=== PATIENT | female | born 1990 | race Caucasian/White ===

== ENCOUNTER → 2018-03-15 | Outpatient (CLI) | payer OTHER ==
[~2018-03-15] MED LIST: AMPH1TAB58 PO; BCPILLS PO
[2018-03-15 16:36] LABS: BASO % 0.5 %; BASO ABS # 0.03 K/uL (0-0.2); EOS % 2.3 %; EOS ABS # 0.15 K/uL (0-0.5); HEMATOCRIT 32.4 % (37-47); HEMOGLOBIN 11.1 g/dL (12.0-16.0); LYMPH ABS # 2.33 K/uL (1.2-3.4); MEAN CELL VOLUME 87.6 fL (80-100); MEAN CORPUSCULAR HGB CONC 34.3 g/dl (32-36); MEAN PLATELET VOLUME 8.8 fL (7.4-10.4); MONO % 9.6 %; MONO ABS # 0.62 K/uL (0.11-0.59); NEUT % 51.6 %; NEUT ABS # 3.35 K/uL (1.4-6.5); PLATELET COUNT 356 K/uL (130-400); RED CELL DISTRIBUTION WIDTH CV 12.7 % (11.5-14.5); RED CELL DISTRIBUTION WIDTH SD 41.1 fL (36.4-46.3); WHITE BLOOD COUNT 6.48 K/uL (4.8-10.8)
== END | disposition home or self-care (01) ==
LOC: C.LAB1850 15:25
PROVIDERS: ATTEND Obstetrics & Gynecology
DX: Z34.01 Encounter for supervision of normal first pregnancy, first trimester (principal)

== ENCOUNTER 2018-10-26 07:46 | Inpatient (IN) ==
[2018-10-26] MEDS ORDERED: LACTATED RINGER'S 1,000 ML IV PRN ×3 (08:18→16:11)
[2018-10-26] MEDS ORDERED: OXYTOCIN 30 UNITS/500 ML BAG IV PRN ×3 (08:18→22:08)
--- NOTE | 2018-10-26 08:25 | History & Physical Report ---
Date of Service October 26, 2018 Assessment & Plan (1) Elective induction of labor planned: Pt is a 28 year old at 40+6 s/p miranda bulb placement 10/25 presenting for induction of labor 09/29 to post dates at 40+6. - FHT reassuring Cat 1 tracing - LR @ 125 - Pitocin 30 units in 500 mls @ 2 mls/hr -> up by 2 - Monitor FHT/toco - Monitor BP - Routine labor care - Anticipate Vaginal , Expectant management History of Present Illness Primary Care Provider: Juanpablo Barbosa, III, [facility] Pt is a 28 year old with lmp of 01/13/2018 and EDC of 10/20/2018 confirmed by 1st trimester ultrasound on 03/15/2018 at 8+5 who presents at 40+6 for induction of labor 09/29 to post dates. A miranda bulb was placed in the evening of 10/25/18 and the pt was instructed to return in the morning. course was significant Rh neg mom and need for rhogam, given on 07/30/18 at 28+2. This morning she reported the miranda bulb fell out ofter 1.5 hours, reports occasional spotting, may have passed her mucus plug, and has reported a few ctx overnight. She denies nausea, vomiting, RUQ pain, swelling, headache, blurred vision, vaginal bleeding, sudden gush of fluid, or decreased movement. Last cer vical exam was 10/25/18 1/80/-2. Pt resting comfortably in bed with dad at the bedside, they have no acute concerns at this time labs First Visit: 7+2 Weight Gain: 35.2 lbs O- antibody neg Last HGB: 10.3 07/30/2019 DM screen: 75 05/07/2018 Rubella Immune HIV neg No hx of abnormal pap, last [address] Gaitan Last U/S 06/04/18: Cephalic, anterior placenta EFW 44%, KEN wnl EGA:40+6 BP Range 100/60-136/82 U/A: skin elisa GBS negative RPR Negative HBsAG Negative GC/ Chlamydia negative OBHX: None GYNHX: menarche @ 13, monthly cycles 28 days, normal amount and duration, no hx abnormal pap, PID, or STDS PMHX: ADHD was taking Adderall stopped on 03/15/18, wisdom teeth extraction Allergies: NKDA FMHX: M- ovarian cyst, PA- epilepsy SHX: Lives with boyfriend and 1 dog Allergies Allergy/AdvReac Type Severity Reaction Status Date / Time No Known Allergies Allergy Unverified 01/22/16 18:04 Home Medications Home Medications Medication Instructions Recorded Confirmed Type ferrous sulfate [Iron (ferrous 325 mg PO DAILY 10/25/18 10/25/18 History sulfate)] vit-iron fum-folic ac 1 tab PO DAILY 10/25/18 10/25/18 History [ Vitamin] Patient History Medical History ADHD H/O wisdom tooth extraction Social History Preferred Language: Prydeinig marital status: Single Feels Safe at Home: Yes Smoking Status: Former smoker Hx Alcohol Use: No Hx Substance Use: No 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 Review of Systems All systems reviewed & are unremarkable except as noted in HPI & below Physical Exam Vital Signs (Past 24 Hours): Last Vital Signs Pulse 82 10/26/18 08:01 BP 118/65 10/26/18 08:01 Constitutional: WD/WN, vitals as above Eyes: normal visual finney by confrontation Respiratory: normal respiratory effort, lungs clear to auscultation Cardiovascular: RRR, no murmur, no edema Extremities: no calf tenderness Skin: no rashes, warm and dry Code Status & VTE Plan Code Status FULL CODE VTE Prophylaxis Plan VTE Prophylaxis will be ordered: Yes Monitoring External Monitor HR 155 Accels present, no decels, ctx preset. Cat one strip Supervising Physician Co-Signing Physician Notes Agree with the above findings, assessment and plan Resident Activity Tracking Resident Involvement: Resident Care Provided Care Provided: Adult Hospital Medicine
[2018-10-26 08:47] LABS: Hematocrit (blood only) 33.1 % (37-47); Hemoglobin 11.2 g/dL (12.0-16.0); Mean Corpuscular Volume 90.4 fL (80-100); Mean Platelet Volume 8.8 fL (7.4-10.4); Platelet Count 272 K/uL (130-400); RDW Coefficient of Variation 13.3 % (11.5-14.5); RDW Standard Deviation 43.6 fL (36.4-46.3); Red Blood Count 3.66 M/uL (4.2-5.4); White Blood Count 8.15 K/uL (4.8-10.8)
[2018-10-26 08:56] LABS: Mean Corpuscular Hgb Conc 33.8 g/dL (32-36)
--- NOTE | 2018-10-26 09:17 | Obstetrical Progress Note ---
Date of Service October 26, 2018 Assessment & Plan (1) Elective induction of labor planned: Will start Oxytocin GBS- Epidural PRN Subjective Patient doing well Physical Exam Vital Signs (Past 24 Hours): Last Vital Signs Temp 36.4 C L 10/26/18 08:09 Pulse 82 10/26/18 08:01 Resp 20 10/26/18 08:09 BP 118/65 10/26/18 08:01 Genitourinary: Manual OB Exam: + cervical dilation 4 cm, + cervical effacement 80% and + station -1 OB Exam Monitor Tracing: + external FHT monitor used and + category I
[2018-10-26] MEDS: LACTATED RINGER'S 1,000 ML IV SCH ×2 (09:39→15:53)
--- NOTE | 2018-10-26 11:47 | Obstetrical Progress Note ---
Date of Service October 26, 2018 Subjective Feeling ctx, does not desire epidural at this time. FHT Cat 1 [place] Q 2-3 min OK for epidural when she desires. Physical Exam Vital Signs (Past 24 Hours): Last Vital Signs Temp 36.4 C L 10/26/18 08:09 Pulse 75 10/26/18 10:50 Resp 20 10/26/18 08:09 BP 104/58 L 10/26/18 10:50
[2018-10-26] MEDS ORDERED: BUPIVACAINE 0.25% 30 ML VIAL ONE (15:20)
[2018-10-26] MEDS ORDERED: ePHEDrine sulfate 50 MG/ML AMP ONE (15:20)
[2018-10-26] MEDS ORDERED: fentaNYL citrate 100 MCG/2 ML VIAL ONE (15:20)
[2018-10-26] MEDS ORDERED: fentaNYL 2MCG/ML ROPIV 1.25MG/ML 100 ML BAG EPI ONE (15:21)
--- NOTE | 2018-10-26 15:32 | Obstetrical Progress Note ---
Date of Service October 26, 2018 Subjective Comfortable. AROM clear fluid. Cat 1, Sophia Q 2 /-1 Physical Exam Vital Signs (Past 24 Hours): Last Vital Signs Temp 36.9 C 10/26/18 14:03 Pulse 66 10/26/18 15:01 Resp 20 10/26/18 14:03 BP 124/80 10/26/18 15:01
[2018-10-26] MEDS ORDERED: ONDANSETRON INJ 2 MG/ML 2 ML VIAL IV PRN (16:11)
[2018-10-26] MEDS ORDERED: DiphenhydrAMINE HCL 50 MG/ML VIAL IV PRN (16:11)
[2018-10-26] MEDS ORDERED: NALOXONE HCL 0.4 MG/1 ML VIAL/CARP IV PRN (16:11)
[2018-10-26] MEDS ORDERED: NALBUPHINE HCL INJ 10 MG/ML AMP IV PRN (16:11)
[2018-10-26] MEDS ORDERED: NALOXONE HCL 1 MG in SODIUM CHLORIDE 0.9% 1000ML 1,000 ML IV PRN (16:11)
[2018-10-26] MEDS ORDERED: ePHEDrine sulfate 50 MG/ML AMP IV PRN (16:11)
[2018-10-26] MEDS ORDERED: fentaNYL 2MCG/ML ROPIV 1.25MG/ML 100 ML BAG EPI PRN (16:11)
--- NOTE | 2018-10-26 16:11 | Anesthesiology Consultation ---
Date of Service October 26, 2018 Assessment & Plan (1) Encounter for pre-operative examination: Chart Review Chart Review: Acceptable Risk for Surgery and Patient NOT seen in Pre Admission Testing Consults Requested none ASA ASA2 Proposed Anesthesia Risk / Benefits Reviewed With: PT / POA / Parent / Guardian, Accepts Plan and Informed Consent Obtained NPO Date Last Intake of Fluids: 10/26/18 Time Last Intake of Fluids: 14:00 Date Last Intake of Solids: 10/26/18 Time Last Intake of Solids: 07:00 History Height/Weight Height: 5 ft 3 in Weight: 69.853 kg Allergies Allergy/AdvReac Type Severity Reaction Status Date / Time No Known Allergies Allergy Verified 10/26/18 08:58 Medications Home Medications Medication Instructions Recorded Confirmed Last Taken ferrous sulfate [Iron (ferrous 325 mg PO DAILY 10/25/18 10/26/18 10/26/18 05:00 sulfate)] vit-iron fum-folic ac 1 tab PO DAILY 10/25/18 10/26/18 10/26/18 05:00 [ Vitamin] Active Medications Generic Name Dose Route Start Last Admin Trade Name Freq PRN Reason Stop Dose Admin Lactated Ringer's 1,000 mls @ 125 mls/hr 10/26/18 08:30 10/26/18 15:10 Lr IV 10/28/18 08:29 999 mls/hr .Q8H ANGEL Infusion Oxytocin 30 units in 500 mls @ 11 mls/hr 10/26/18 08:18 10/26/18 14:00 Pitocin IV 10/28/18 08:17 0.66 units/hr .Q24H PRN 11 mls/hr Labor Induction/Augmentation Titration Protocol 0.66 UNITS/HR Past Medical History Medical History ADHD H/O wisdom tooth extraction Social History Smoking Status: Never smoker tobacco type: cigarettes Hx Alcohol Use: No Alcohol type: wine Hx Substance Use: No substance use type: does not use Physical Exam Vital Signs Last Vital Signs Temp 36.9 C 10/26/18 14:03 Pulse 59 L 10/26/18 16:08 Resp 20 10/26/18 14:03 BP 117/80 10/26/18 16:08 Pulse Ox 100 10/26/18 16:05 Constitutional gravid abdomen ENMT Mouth: no TMJ abnormality Thyromental Distance: > or= 3.5 Finger Breadths Mallampati Class: II Neck normal visual inspection Respiratory normal respiratory effort Cardiovascular Rate/Rhythm: regular rate and regular rhythm Neurologic moves all extremities Psychiatric Orientation: alert Testing Laboratory Results 10/26/18 08:31
--- NOTE | 2018-10-26 19:01 | Procedure Note ---
Vaginal Delivery Summary Date of Service October 26, 2018 Vaginal Delivery Summary Predelivery: 28yo @ 40 02/01, Rh negative status Post: same Procedure: Spontaneous vaginal delivery, repair of 2nd degree perineal laceration EBL: 300ml Complications: none Findings: Viable male , Apgars 8 and 9. Weight pending, please see nursery records Surgeon: Dr. Ugarte Description of delivery: Patient progressed to complete with epidural anesthesia. She then began to push. She spontaneously vaginally delivered a viable male from the cephalic presentation. Head delivered in the left occiput anterior position, no nuchal cord was noted. The anterior shoulder delivered, followed by the posterior shoulder, followed by the body. The baby was placed on mother's abdomen, spontaneous cry was heard. The cord was short, therefore delayed cord clamping was not employed. The cord was doubly clamped and cut immediately. Cord blood was obtained. The placenta was then delivered spontaneously intact with a three-vessel cord. The uterus and vagina were swept of all clots and debris. Pitocin was given, the uterus became firm. The bladder was drained. The cervix vagina and perineum were inspected, and a second degree perineal laceration was noted, this was repaired in standard fashion with 3-0 Vicryl. Excellent hemostasis was observed. Sponge, instrument, needle counts were correct at the conclusion of the delivery. The mother and baby recovered in stable and good condition in the room.
--- NOTE | 2018-10-26 20:24 | Anesthesiology Progress Note ---
Date of Service October 26, 2018 Anesthesia Post Procedure Vital Signs Vital Signs: Temp Pulse Resp BP Pulse Ox 10/26/18 20:21 93 H 83/52 L 10/26/18 20:20 88 85/53 L 10/26/18 20:19 97 H 100 10/26/18 20:14 125 H 99 10/26/18 20:11 142 H 110/64 10/26/18 19:56 171 H 109/58 L 10/26/18 19:41 150 H 18 111/63 10/26/18 19:26 117 H 18 112/79 10/26/18 19:11 100 H 18 110/77 10/26/18 18:57 93 H 18 118/79 10/26/18 18:41 91 H 20 117/63 10/26/18 18:32 111 H 138/65 10/26/18 18:30 116 H 100 10/26/18 18:25 123 H 100 10/26/18 18:24 131 H 90 10/26/18 18:23 22 10/26/18 18:20 123 H 100 10/26/18 18:18 134 H 81 L 10/26/18 18:17 169 H 165/70 H 10/26/18 18:15 129 H 92 10/26/18 18:12 141 H 89 L 10/26/18 18:10 140 H 100 10/26/18 18:06 153 H 90 10/26/18 18:05 129 H 100 10/26/18 18:03 134 H 134/76 10/26/18 18:02 20 10/26/18 18:01 161 H 89 L 10/26/18 18:00 150 H 99 10/26/18 17:55 117 H 100 10/26/18 17:50 140 H 100 10/26/18 17:46 107 H 125/82 10/26/18 17:45 122 H 100 10/26/18 17:44 20 10/26/18 17:40 74 100 10/26/18 17:35 70 98 10/26/18 17:32 60 117/76 10/26/18 17:31 20 10/26/18 17:30 59 L 100 10/26/18 17:25 60 100 10/26/18 17:20 58 L 99 10/26/18 17:17 57 L 114/72 10/26/18 17:16 18 10/26/18 17:15 63 99 10/26/18 17:10 61 100 10/26/18 17:05 57 L 100 10/26/18 17:02 58 L 114/71 10/26/18 17:00 36.8 C 60 20 100 10/26/18 16:55 59 L 100 10/26/18 16:50 59 L 100 10/26/18 16:48 56 L 133/82 10/26/18 16:45 36.9 C 64 20 100 10/26/18 16:40 58 L 100 10/26/18 16:35 58 L 100 10/26/18 16:32 66 132/91 10/26/18 16:30 70 20 99 10/26/18 16:25 59 L 99 10/26/18 16:20 70 99 10/26/18 16:16 60 135/94 10/26/18 16:15 60 20 100 10/26/18 16:14 62 140/90 10/26/18 16:12 62 125/80 10/26/18 16:10 58 L 139/77 99 10/26/18 16:08 59 L 117/80 10/26/18 16:06 57 L 124/79 10/26/18 16:05 59 L 100 10/26/18 16:04 36.8 C 61 139/85 10/26/18 16:02 55 L 130/72 10/26/18 16:00 67 20 128/76 100 10/26/18 15:55 76 100 10/26/18 15:53 68 20 136/80 10/26/18 15:50 68 100 10/26/18 15:45 80 100 10/26/18 15:44 69 20 144/95 H 10/26/18 15:01 66 124/80 10/26/18 15:00 20 10/26/18 14:03 36.9 C 70 20 118/73 10/26/18 12:47 64 116/62 10/26/18 11:58 36.5 C 78 20 110/77 10/26/18 10:50 75 104/58 L 10/26/18 09:44 73 101/67 10/26/18 08:09 36.4 C L 20 10/26/18 08:01 82 118/65 Pain Intensity Lower Abdomen: Pain Intensity: 0 Notes Mental Status: alert / awake / arousable Nausea / Vomiting: adequately controlled Pain: adequately controlled Airway Patency, RR, SpO2: stable & adequate BP & HR: stable & adequate Hydration State: stable & adequate Neuraxial Anesthesia: was administered and sensory block is resolving Anesthetic Complications: no major complications apparent and Pt Satisfied with anesthetic care Notes: Tip removed in tact
[2018-10-26] MEDS ORDERED: METHYLERGONOVINE MALEATE 0.2 MG/ML AMP ONE (20:39)
--- NOTE | 2018-10-26 20:48 | Obstetrical Progress Note ---
Date of Service October 26, 2018 Subjective Called to patient room for low BP, elevated pulse. Patient's family just left room, she states she thinks she was just stressed out while they were here. Small trickle of blood from vagina, not large amount. Pelvic exam reveals large amount of clots, this was expressed manually. Small piece of placenta extracted from uterine fundus. Bleeding appears to have stopped. 1000mcg cytotec given rectally, 0.2mg methergine given to help prevent uterine atony. Labs/coags ordered STAT. IV fluid bolus given. Physical Exam Vital Signs (Past 24 Hours): Last Vital Signs Temp 36.8 C 10/26/18 17:00 Pulse 98 H 10/26/18 20:44 Resp 18 10/26/18 19:41 BP 112/64 10/26/18 20:43 Pulse Ox 100 10/26/18 20:44
[2018-10-26] MEDS ORDERED: miSOPROStol 200 MCG TAB PR ONE (20:50)
[2018-10-26] MEDS ORDERED: METHYLERGONOVINE MALEATE 0.2 MG/ML AMP IM STA (20:51)
[2018-10-26] MEDS ORDERED: miSOPROStol 200 MCG TAB ONE (20:51)
[2018-10-26 21:05] LABS: Hematocrit (blood only) 28.8 % (37-47); Hemoglobin 9.8 g/dL (12.0-16.0); Mean Corpuscular Volume 90.3 fL (80-100); Mean Platelet Volume 8.6 fL (7.4-10.4); Platelet Count 226 K/uL (130-400); RDW Coefficient of Variation 13.2 % (11.5-14.5); RDW Standard Deviation 43.3 fL (36.4-46.3); Red Blood Count 3.19 M/uL (4.2-5.4); White Blood Count 13.71 K/uL (4.8-10.8)
[2018-10-26] MEDS: IBUPROFEN 600 MG TAB PO PRN (21:06)
--- NOTE | 2018-10-26 21:16 | Obstetrical Progress Note ---
Date of Service October 26, 2018 Subjective Recheck of uterus, fundus firm and below umbilicus. Small clots expressed on manual exam. BP and pulse improved. Patient feeling ok. Discussed hemorrhage, provided reassurance. Hemoglobin 9.8 (down from 11.2). Remainder of labs pending. Physical Exam Vital Signs (Past 24 Hours): Last Vital Signs Temp 36.8 C 10/26/18 17:00 Pulse 92 H 10/26/18 21:09 Resp 18 10/26/18 19:41 BP 119/90 10/26/18 21:05 Pulse Ox 100 10/26/18 21:09
[2018-10-26 21:21] LABS: Alanine Aminotransferase 24 U/L (12-78); Albumin Level 2.1 gm/dl (3.4-5.0); Aspartate Aminotransferase 23 U/L (15-37); BUN Creatinine Ratio 13.9 (10-20); Blood Urea Nitrogen 7 mg/dl (7-18); Carbon Dioxide 20 mmol/L (21-32); Chloride 107 mmol/L (98-107); Creatinine Clr Calc Pharmacy 167.1 ml/min; Est GFR (African American) > 150.0; Est GFR (Non-African American) 134.4; Glucose 85 mg/dl (70-99); Potassium 3.5 mmol/L (3.5-5.1); Sodium 136 mmol/L (136-145)
[2018-10-26 21:24] LABS: Albumin Globulin Ratio 0.6 (0.9-2); Alkaline Phosphatase 126 U/L (45-117); Bilirubin,Total 0.3 mg/dl (0.2-1); Globulin 3.3 gm/dl (2.5-4.0); Total Protein 5.4 gm/dl (6.4-8.2)
[2018-10-26 21:33] LABS: Basophils # (auto) 0.01 K/uL (0-0.2); Basophils % (auto) 0.1 %; Eosinophils # (auto) 0.01 K/uL (0-0.5); Eosinophils % (auto) 0.1 %; Immature Granulocytes # (auto) 0.02 K/uL (0.00-0.02); Immature Granulocytes % (auto) 0.1 %; Lymphocytes # (auto) 1.36 K/uL (1.2-3.4); Lymphocytes % (auto) 9.9 %; Monocytes # (auto) 1.03 K/uL (0.11-0.59); Monocytes % (auto) 7.5 %; Neutrophils # (auto) 11.28 K/uL (1.4-6.5); Neutrophils % (auto) 82.3 %
[2018-10-26 21:49] LABS: Fibrinogen 395 mg/dl (184-400); Partial Thromboplastin Ratio 0.8; Partial Thromboplastin Time 22.8 Seconds (21.0-31.0); Prothrombin Time 9.8 Seconds (9.0-12.0)
[2018-10-26] MEDS ORDERED: BENZOCAINE 20% AER SPR 82.5 GM CAN EXT PRN (22:08)
[2018-10-26] MEDS ORDERED: OXYCODONE/ACETAMINOPHEN 5mg/325mg TAB PO PRN (22:08)
[2018-10-26] MEDS ORDERED: DIPHTHERIA/TETANUS/PERTUSSIS 0.5 ML SYR/VIAL IM ONE (22:08)
[2018-10-26] MEDS ORDERED: SUPERCREAM 0.870% 15 GM JAR EXT PRN (22:08)
[2018-10-26] MEDS ORDERED: ACETAMINOPHEN 325 MG TAB PO PRN (22:08)
[2018-10-26] MEDS ORDERED: BISACODYL 10 MG SUPP PR PRN (22:08)
[2018-10-26] MEDS ORDERED: HYDROCORTISONE ACETATE 25 MG SUPP PR PRN (22:08)
[2018-10-26] MEDS: DOCUSATE SODIUM 100 MG CAP PO SCH (23:19)
[2018-10-27] MEDS: IBUPROFEN 600 MG TAB PO PRN ×4 (01:28→23:08)
[2018-10-27 06:44] LABS: Hematocrit (blood only) 27.5 % (37-47); Hemoglobin 9.3 g/dL (12.0-16.0)
--- NOTE | 2018-10-27 07:12 | Obstetrical Progress Note ---
Date of Service October 27, 2018 Assessment & Plan (1) Status post vaginal delivery: Patient is a 28 year old PPD 1 presented for IOL 2/2 post dates currently s/p -Vital signs WNL bp 107/69 T36.7, -Hemoglobin is 9.8 down from 11.2 on admission. no si/sx of anemia. -Pt is doing clinically well -Continue to encourage ambulation as tolerated, Monitor and control pain with motrin prn, Continue diet as tolerated. -Continue to support and encourage breast feeding -Routine care Supervising Physician Co-Signing Physician Notes I have seen/examined patient. I have read above note performed by resident and I agree with above. Any changes/additions are as follows: PPD#1 doing well. No further bleeding after last night's hemorrhage and manual removal of retained placenta. Feeling well. Anticipate discharge home tomorrow. Taty Ugarte DO [facility] Subjective Pt sleeping in bed with FOB sleeping in bed next to her. She is doing well this am and in good spirits. Overnight she had continued vaginal bleeding and hypotension 2/2 to retained placenta, removed by Dr. Ugarte (see previous note). Plan is to breast feed. Patient is tolerating her diet, ambulating, passing gas and voiding, no bm. Reports moderate lochia. Denies H/A, chest pain, palpitations and uti syx. No concerns at this time pain is well controlled Physical Exam Vital Signs (Past 24 Hours): Last Vital Signs Temp 36.6 C 10/27/18 04:35 Pulse 80 10/27/18 04:35 Resp 18 10/27/18 04:35 BP 107/70 10/27/18 04:35 Pulse Ox 99 10/26/18 22:54 Constitutional: WD/WN, vitals as above Eyes: normal visual finney by confrontation Respiratory: normal respiratory effort, lungs clear to auscultation Cardiovascular: RRR, no murmur, no edema Extremities: no calf tenderness Gastrointestinal (Abdomen): normal bowel sounds, soft, nontender, no hepatosplenomegaly (Uterus firm 1 finger below umbilicus) Skin: no rashes, warm and dry Results & Data Laboratory Results 10/27/18 10/27/18 10/26/18 Range/Units 06:28 06:28 20:51 WBC (4.8-10.8) K/uL RBC (4.2-5.4) M/uL Hgb 9.3 L (12.0-16.0) g/dL Hct 27.5 L (37-47) % MCV (80-100) fL MCH (25-34) pg MCHC (32-36) g/dL RDW Std Deviation (36.4-46.3) fL RDW Coeff of Siobhan (11.5-14.5) % Plt Count (130-400) K/uL MPV (7.4-10.4) fL Immature Gran % (Auto) % Neut % (Auto) % Lymph % (Auto) % [place] % (Auto) % Eos % (Auto) % Baso % (Auto) % Immature Gran # (Auto) (0.00-0.02) K/uL Neut # (Auto) (1.4-6.5) K/uL Lymph # (Auto) (1.2-3.4) K/uL [place] # (Auto) (0.11-0.59) K/uL Eos # (Auto) (0-0.5) K/uL Baso # (Auto) (0-0.2) K/uL PT (9.0-12.0) Seconds INR (0.9-1.1) APTT (21.0-31.0) Seconds PTT Ratio Fibrinogen (184-400) mg/dl Fibrin Degrad Products 10-40 H (<10) mcg/ml Sodium (136-145) mmol/L Potassium (3.5-5.1) mmol/L Chloride (98-107) mmol/L Carbon Dioxide (21-32) mmol/L Anion Gap (3-11) BUN (7-18) mg/dl Creatinine (0.6-1.2) mg/dl Est Cr Clr Drug Dosing ml/min Est GFR ( Amer) Est GFR (Non-Af Amer) BUN/Creatinine Ratio (10-20) Glucose (70-99) mg/dl Calcium (8.5-10.1) mg/dl Total Bilirubin (0.2-1) mg/dl AST (15-37) U/L ALT (12-78) U/L Alkaline Phosphatase (45-117) U/L Lactate Dehydrogenase (84-246) U/L Total Protein (6.4-8.2) gm/dl Albumin (3.4-5.0) gm/dl Globulin (2.5-4.0) gm/dl Albumin/Globulin Ratio (0.9-2) Blood Type Pending Antibody Screen Pending Screen Pending 10/26/18 10/26/18 10/26/18 Range/Units 20:51 20:51 20:51 WBC (4.8-10.8) K/uL RBC (4.2-5.4) M/uL Hgb (12.0-16.0) g/dL Hct (37-47) % MCV (80-100) fL MCH (25-34) pg MCHC (32-36) g/dL RDW Std Deviation (36.4-46.3) fL RDW Coeff of Siobhan (11.5-14.5) % Plt Count (130-400) K/uL MPV (7.4-10.4) fL Immature Gran % (Auto) % Neut % (Auto) % Lymph % (Auto) % [place] % (Auto) % Eos % (Auto) % Baso % (Auto) % Immature Gran # (Auto) (0.00-0.02) K/uL Neut # (Auto) (1.4-6.5) K/uL Lymph # (Auto) (1.2-3.4) K/uL [place] # (Auto) (0.11-0.59) K/uL Eos # (Auto) (0-0.5) K/uL Baso # (Auto) (0-0.2) K/uL PT 9.8 (9.0-12.0) Seconds INR 1.0 (0.9-1.1) APTT 22.8 (21.0-31.0) Seconds PTT Ratio 0.8 Fibrinogen 395 (184-400) mg/dl Fibrin Degrad Products (<10) mcg/ml Sodium 136 (136-145) mmol/L Potassium 3.5 (3.5-5.1) mmol/L Chloride 107 (98-107) mmol/L Carbon Dioxide 20 L (21-32) mmol/L Anion Gap 9.0 (3-11) BUN 7 (7-18) mg/dl Creatinine 0.47 L (0.6-1.2) mg/dl Est Cr Clr Drug Dosing 167.1 ml/min Est GFR ( Amer) > 150.0 Est GFR (Non-Af Amer) 134.4 BUN/Creatinine Ratio 13.9 (10-20) Glucose 85 (70-99) mg/dl Calcium 8.0 L (8.5-10.1) mg/dl Total Bilirubin 0.3 (0.2-1) mg/dl AST 23 (15-37) U/L ALT 24 (12-78) U/L Alkaline Phosphatase 126 H (45-117) U/L Lactate Dehydrogenase 173 (84-246) U/L Total Protein 5.4 L (6.4-8.2) gm/dl Albumin 2.1 L (3.4-5.0) gm/dl Globulin 3.3 (2.5-4.0) gm/dl Albumin/Globulin Ratio 0.6 L (0.9-2) Blood Type Antibody Screen Screen 10/26/18 10/26/18 Range/Units 20:51 08:31 WBC 13.71 H 8.15 (4.8-10.8) K/uL RBC 3.19 L 3.66 L (4.2-5.4) M/uL Hgb 9.8 L 11.2 L (12.0-16.0) g/dL Hct 28.8 L 33.1 L (37-47) % MCV 90.3 90.4 (80-100) fL MCH 30.7 30.6 (25-34) pg MCHC 34.0 33.8 (32-36) g/dL RDW Std Deviation 43.3 43.6 (36.4-46.3) fL RDW Coeff of Siobhan 13.2 13.3 (11.5-14.5) % Plt Count 226 272 (130-400) K/uL MPV 8.6 8.8 (7.4-10.4) fL Immature Gran % (Auto) 0.1 % Neut % (Auto) 82.3 % Lymph % (Auto) 9.9 % [place] % (Auto) 7.5 % Eos % (Auto) 0.1 % Baso % (Auto) 0.1 % Immature Gran # (Auto) 0.02 (0.00-0.02) K/uL Neut # (Auto) 11.28 H (1.4-6.5) K/uL Lymph # (Auto) 1.36 (1.2-3.4) K/uL [place] # (Auto) 1.03 H (0.11-0.59) K/uL Eos # (Auto) 0.01 (0-0.5) K/uL Baso # (Auto) 0.01 (0-0.2) K/uL PT (9.0-12.0) Seconds INR (0.9-1.1) APTT (21.0-31.0) Seconds PTT Ratio Fibrinogen (184-400) mg/dl Fibrin Degrad Products (<10) mcg/ml Sodium (136-145) mmol/L Potassium (3.5-5.1) mmol/L Chloride (98-107) mmol/L Carbon Dioxide (21-32) mmol/L Anion Gap (3-11) BUN (7-18) mg/dl Creatinine (0.6-1.2) mg/dl Est Cr Clr Drug Dosing ml/min Est GFR ( Amer) Est GFR (Non-Af Amer) BUN/Creatinine Ratio (10-20) Glucose (70-99) mg/dl Calcium (8.5-10.1) mg/dl Total Bilirubin (0.2-1) mg/dl AST (15-37) U/L ALT (12-78) U/L Alkaline Phosphatase (45-117) U/L Lactate Dehydrogenase (84-246) U/L Total Protein (6.4-8.2) gm/dl Albumin (3.4-5.0) gm/dl Globulin (2.5-4.0) gm/dl Albumin/Globulin Ratio (0.9-2) Blood Type Antibody Screen Screen Medications Administered Current Inpatient Medications Acetaminophen (Tylenol) 650 mg PO Q6H PRN PRN Reason: Pain/GRIFFIN/Fever Stop: 11/25/18 22:07 Benzocaine (Dermoplast Pain Relieving [place]) 1 appln EXT PRN PRN PRN Reason: Perineal Discomfort Stop: 11/25/18 22:07 Last Admin: 10/26/18 23:23 Dose: 1 appln Documented by: Bisacodyl (Dulcolax) 10 mg RI DAILY PRN PRN Reason: No BM on 2nd post- day Stop: 11/25/18 22:07 Bisacodyl (Dulcolax) 5 mg PO 1999 [facility] Stop: 10/27/18 20:01 Cocaine HCl (Supercream 0.870%) 1 gm EXT BID PRN PRN Reason: Hemorrhoidal Inflammation Stop: 11/09/18 22:07 Docusate Sodium (Colace) 100 mg PO BID [facility] Stop: 11/25/18 22:07 Last Admin: 10/26/18 23:19 Dose: Not Given Documented by: Hydrocortisone (Anusol Hc) 25 mg RI BID PRN PRN Reason: Hemorrhoidal Inflammation Stop: 11/25/18 22:07 Oxytocin (Pitocin) 30 units in 500 mls @ 333.333 mls/hr IV .Q1H30M PRN; Protocol PRN Reason: BLEEDING CONTROL Stop: 11/25/18 22:07 Ibuprofen (Motrin) 600 mg PO Q4H PRN PRN Reason: Pain/GRIFFIN/Cramping/Fever Stop: 11/25/18 18:53 Last Admin: 10/27/18 01:28 Dose: 600 mg Documented by: Oxycodone/Acetaminophen (Percocet 5mg/325mg) 1 tab PO Q4H PRN PRN Reason: Pain not relieved by... Stop: 11/09/18 22:07 Prenat Multivit/[place]/Iron/Folic Ac ( Vitamin) 1 tab PO QAM [facility] Stop: 11/26/18 08:59 Resident Activity Tracking Resident Involvement: Resident Care Provided Care Provided: Adult Hospital Medicine
[2018-10-27] MEDS: DOCUSATE SODIUM 100 MG CAP PO SCH ×2 (09:41→20:14)
[2018-10-27] MEDS: PRENATAL VITAMIN 1 TAB PO SCH (09:41)
[2018-10-27] MEDS ORDERED: BISACODYL 5 MG TABEC PO SCH (20:00)
--- NOTE | 2018-10-28 05:42 | Obstetrical Progress Note ---
Date of Service October 28, 2018 Assessment & Plan (1) Status post vaginal delivery: Patient PPD2 Stable for discharge Subjective Patient doing well. Meeting PP goals Physical Exam Vital Signs (Past 24 Hours): Last Vital Signs Temp 36.5 C 10/27/18 23:20 Pulse 79 10/27/18 23:20 Resp 18 10/27/18 23:20 BP 107/64 10/27/18 23:20 Pulse Ox 99 10/27/18 20:05 Genitourinary: OB Exam Abdomen: + fundal height Fundus: + firm and + relation to umbilicus (Below); not tender and not boggy
[2018-10-28] MEDS: PRENATAL VITAMIN 1 TAB PO SCH (07:59)
[2018-10-28] MEDS: DOCUSATE SODIUM 100 MG CAP PO SCH (07:59)
== END 2018-10-28 13:28 | disposition home or self-care (01) | DRG 806 ==
LOC: 4S1 07:46 → 4S2 23:31

== ENCOUNTER 2022-01-03 07:35 | Inpatient (IN) ==
[2022-01-03] MEDS ORDERED: OXYTOCIN 30 UNITS/500 ML BAG IV PRN ×3 (08:26→13:10)
--- NOTE | 2022-01-03 08:43 | Labor Progress Brief Note ---
Date of Service January 03, 2022 Subjective 31yo @ 40w2d for planned IOL, arrives with no ctx no lof no VB, + FM. Wants to make certain she gets her epidural as she got very painful very quickly after ROM with her last labor. Assessment & Plan (1) Encounter for induction of labor: Plan: Patient planned for IOL today. Per patient wishes, OK to get IV and Epidural placed before pitocin starts as she is fearful of missing the chance to get pain relief given her prior history and current advanced dilation. Admission and Anticipated Discharge Date Admission Date: January 03, 2022 Physical Exam Genitourinary: /-1 FHT Cat 1 Rare ctx barely appreciated by patient Results & Data ([facility]) Vital Signs (Past 12 Hours) Vital Signs Pulse BP 01/03/22 07:43 86 127/77 Coding Level of Care Code None Diagnoses Encounter for induction of labor Z34.90
[2022-01-03] MEDS: LACTATED RINGER'S 1,000 ML IV PRN ×2 (08:45→10:21)
[2022-01-03] MEDS ORDERED: PATIENT'S HEIGHT AND/OR WEIGHT NEEDED SCH (08:45)
[2022-01-03] MEDS ORDERED: fentaNYL 2MCG/ML ROPIVACAINE 1.25MG/ML 100 ML BAG EPI ONE (08:58)
[2022-01-03] MEDS ORDERED: SODIUM CHLORIDE 0.9% INJ 10 ML VIAL ONE (08:58)
[2022-01-03] MEDS ORDERED: fentaNYL citrate 100 MCG/2 ML VIAL ONE (08:58)
[2022-01-03] MEDS ORDERED: ePHEDrine sulfate 50 MG/ML AMP ONE (08:58)
[2022-01-03] MEDS ORDERED: BUPIVACAINE 0.25% 30 ML VIAL ONE (08:58)
[2022-01-03 09:06] LABS: Hematocrit (blood only) 34.2 % (37-47); Hemoglobin 11.5 g/dL (12.0-16.0); Mean Corpuscular Hemoglobin 30.6 pg (25-34); Mean Corpuscular Hgb Conc 33.6 g/dL (32-36); Mean Platelet Volume 8.4 fL (7.4-10.4); Platelet Count 347 K/uL (130-400); RDW Coefficient of Variation 13.6 % (11.5-14.5); RDW Standard Deviation 45.2 fL (36.4-46.3); Red Blood Count 3.76 M/uL (4.2-5.4); White Blood Count 8.43 K/uL (4.8-10.8)
[2022-01-03] MEDS ORDERED: NALBUPHINE HCL INJ 10 MG/ML AMP IV PRN (09:10)
[2022-01-03] MEDS ORDERED: NALOXONE HCL 1 MG in SODIUM CHLORIDE 0.9% 1000ML 1,000 ML IV PRN (09:10)
[2022-01-03] MEDS ORDERED: ePHEDrine sulfate 50 MG/ML AMP IV PRN (09:10)
[2022-01-03] MEDS ORDERED: NALOXONE HCL 0.4 MG/1 ML VIAL/CARP IV PRN (09:10)
[2022-01-03] MEDS ORDERED: fentaNYL 2MCG/ML ROPIVACAINE 1.25MG/ML 100 ML BAG EPI PRN (09:10)
[2022-01-03] MEDS ORDERED: diphenhydrAMINE 50 MG/ML VIAL IV PRN (09:10)
[2022-01-03] MEDS ORDERED: ONDANSETRON INJ 2 MG/ML 2 ML VIAL IV PRN (09:10)
--- NOTE | 2022-01-03 09:10 | Anesthesiology Consultation ---
Date of Service January 03, 2022 Assessment & Plan ASA ASA2 Proposed Anesthesia Anesthesia Type: Labor Epidural Risk / Benefits Reviewed With: PT / POA / Parent / Guardian, Accepts Plan and Informed Consent Obtained History Allergies Allergy/AdvReac Type Severity Reaction Status Date / Time No Known Allergies Allergy Verified 12/31/21 12:12 Medications Home Medications Medication Instructions Recorded Confirmed Last Taken prenat.vits,mitzy,nax-[id number]-[id number] 1 tab PO DAILY 05/21/21 01/03/22 01/03/22 06:00 ferrous sulfate 325 mg (65 mg 325 mg PO DAILY 10/26/21 01/03/22 12/31/21 08:00 iron) tablet omega 3,6,9 combination no.7 92 mg 92 mg PO DAILY 01/03/22 01/03/22 01/03/22 06:00 (43 mg-22 [id number]) chew tablet ([facility]) Active Medications Generic Name Dose Route Start Last Admin Trade Name Freq PRN Reason Stop Dose Admin Lactated Ringer's 1,000 mls @ 125 mls/hr 01/03/22 08:26 01/03/22 08:49 Lr IV 01/05/22 08:25 999 mls/hr .Q8H PRN Infusion L&D Protocol Protocol Past Medical History Medical History (Updated 01/03/22 @ 08:42 by Jackelin Benjamin MD) ADHD History of chicken pox Exercise / Class Metabolic Activity II 4-5 Yardwork/Stairs/Walk up hill Past Family History Family History (Updated 01/03/22 @ 08:10 by Yesi Hodge RN) Father Heart disease Skin cancer Other Epilepsy Ovarian cyst Denies family history of Ovarian cancer Breast cancer Colorectal cancer Uterine cancer Past Surgical History Surgical History H/O wisdom tooth extraction Past Anesthesia History No Hx of Anesthesia Complications and No Family Hx of Anesthesia Complications History of PONV No Hx of PONV and No Hx of Motion Sickness Social History Smoking Status: Former smoker tobacco type: cigarettes Hx Alcohol Use: No Alcohol type: wine Hx Substance Use: No substance use type: does not use Review of Systems denies fever/cough/ colds/ chest pain/ SOB/ BELL denies BELL Physical Exam Vital Signs Last Vital Signs Temp 36.7 C 01/03/22 07:43 Pulse 86 01/03/22 07:43 Resp 20 01/03/22 07:43 BP 127/77 01/03/22 07:43 ENMT Mouth: no TMJ abnormality and no dentition abnormality Thyromental Distance: > or= 3.5 Finger Breadths Mallampati Class: II Neck neck extension not limited Respiratory normal respiratory effort; no respiratory distress Auscultation: lungs clear to auscultation bilaterally Cardiovascular Rate/Rhythm: regular rate and regular rhythm Neurologic moves all extremities Psychiatric Orientation: alert and oriented x 3 Testing Laboratory Results 01/03/22 08:39
--- NOTE | 2022-01-03 09:13 | History & Physical Report ---
Date of Service January 03, 2022 Assessment & Plan (1) Encounter for supervision of normal in multigravida: Plan: IOL. Pitocin. OK for epidural when she desires. Admission and Anticipated Discharge Date Admission Date: January 03, 2022 History of Present Illness Chief Complaint: IOL Primary Care Provider: Juanpablo Barbosa III, MARISELA 31yo @ 40 10/04, here for IOL. with: and Delivery Plans Post-Dates Induction 01/03/22 Need for Rhogam d/t Rh negative mother Rhogam given 10/12/21 SB Flu vaccine received 05/27/21 OC covid J and J, moderna booster in Jun. Tdap given 10/12/21 anterior placenta with posterior accessory lobe--not connected to main placenta, no over cervix. take care with placenta that delivery intact and includes lobe. Allergies Allergy/AdvReac Type Severity Reaction Status Date / Time No Known Allergies Allergy Verified 12/31/21 12:12 Home Medications Medication Instructions Recorded Confirmed Type prenat.vits,mitzy,ish-jxbl-pwtvj 1 tab PO DAILY 05/21/21 01/03/22 History ferrous sulfate 325 mg (65 mg 325 mg PO DAILY 10/26/21 01/03/22 History iron) tablet omega 3,6,9 combination no.7 92 mg 92 mg PO DAILY 01/03/22 01/03/22 History (43 mg-22 [id number]) chew tablet ([facility]) Patient History Medical History (Updated 01/03/22 @ 08:42 by Jackelin Benjamin MD) ADHD History of chicken pox Surgical History H/O wisdom tooth extraction Family History (Updated 01/03/22 @ 08:10 by Yesi Hodge RN) Father Heart disease Skin cancer Other Epilepsy Ovarian cyst Denies family history of Ovarian cancer Breast cancer Colorectal cancer Uterine cancer Social History (Updated 01/03/22 @ 08:15 by Yesi Hodge, LOLLY) Smoking Status: Former smoker Hx Alcohol Use: No Hx Substance Use: No Preferred Language: Angolan Communication Ability: Effective Visual Impairment: No Limitations Hearing Ability: Normal Dog Hair Clipper Required: No Beliefs That Will Affect Care: None marital status: Single marital status details: Alex Stone (43) [phone] Current Living Situation: Family and Significant Other Current Living Situation Comment: lives with fob, son, dog current occupational status: employed current occupation: teacher-[employer] Other Information That Helps Us Care for You: No Feels Safe at Home: Yes Diet Comment: No pork Gender Identity: Female Assistive Devices: None Review of Systems All systems reviewed & are unremarkable except as noted in HPI & below Physical Exam Constitutional: WD/WN, vitals as above Respiratory: normal respiratory effort, lungs clear to auscultation no respiratory distress Cardiovascular: Rate/Rhythm: regular rate and regular rhythm Gastrointestinal (Abdomen): Inspection/Auscultation: abdomen normal to inspection Percussion/Palpation: abdomen soft; abdomen nontender Gravid. No s/s chorio or abruption. Skin: no rashes, warm and dry Psychiatric: A+Ox3, euthymic affect Results & Data ([facility]) Vital Signs (Past 12 Hours) Vital Signs Temp Pulse Resp BP 01/03/22 07:43 36.7 C 86 20 127/77 Monitoring External Monitor FHT Cat 1 [place] rare Coding Level of Care Code None Diagnoses Encounter for supervision of normal in multigravida Z34.80
--- NOTE | 2022-01-03 11:24 | Labor Progress Brief Note ---
Date of Service January 03, 2022 Subjective Comfortable with epidural. FHT Cat 1 [place] Q 2-3 SVE 6-7/100/0 AROM clear fluid. Pitocin @ 3 Continue labor. Assessment & Plan Admission and Anticipated Discharge Date Admission Date: January 03, 2022 Results & Data ([facility]) Vital Signs (Past 12 Hours) Vital Signs Temp Pulse Resp BP Pulse Ox 01/03/22 11:22 76 01/03/22 11:17 86 100 01/03/22 11:12 89 99 01/03/22 11:11 63 106/64 01/03/22 11:07 60 98 01/03/22 11:02 60 98 01/03/22 10:57 222 H 63 L 01/03/22 10:55 66 104/67 01/03/22 10:48 78 98 01/03/22 10:43 65 96 01/03/22 10:40 75 102/60 01/03/22 10:38 75 100 01/03/22 10:33 74 100 01/03/22 10:28 74 99 01/03/22 10:25 77 96/57 L 01/03/22 10:23 81 98 01/03/22 10:18 76 100 01/03/22 10:13 70 98 01/03/22 10:10 75 96/54 L 01/03/22 10:08 75 99/54 L 100 01/03/22 10:06 94 H 111/66 01/03/22 10:04 75 108/61 01/03/22 10:03 78 100 01/03/22 10:02 86 116/67 01/03/22 10:00 72 16 91/50 L 01/03/22 09:58 76 95/61 L 100 01/03/22 09:56 103 H 105/67 01/03/22 09:54 90 114/66 01/03/22 09:53 90 100 01/03/22 09:52 96 H 118/68 01/03/22 09:50 99 H 20 113/65 01/03/22 09:48 97 H 113/65 100 01/03/22 09:46 106 H 113/68 01/03/22 09:44 103 H 108/66 01/03/22 09:43 102 H 100 01/03/22 09:42 106 H 112/66 01/03/22 09:40 82 20 105/57 L 01/03/22 09:38 96 H 18 114/76 100 01/03/22 09:36 78 113/71 01/03/22 09:33 103 H 99 01/03/22 09:28 87 100 01/03/22 09:24 90 20 135/75 01/03/22 09:23 97 H 100 01/03/22 07:43 36.7 C 86 20 127/77 Coding Level of Care Code None
--- NOTE | 2022-01-03 12:56 | Delivery Summary ---
Vaginal Delivery Summary Date of Service January 03, 2022 Vaginal Delivery Summary and 2nd Degree LAC Vaginal Delivery Summary: Pre-delivery diagnoses: 31yo @ 40 2/7, IOL Post-delivery diagnoses: same Procedure: spontaneous vaginal delivery, repair of 2nd degree perineal laceration Surgeon: Taty Ugarte DO Complications: none Findings: Viable female . Apgars: 9/9. Weight pending, please see nursery records Estimated blood loss: 300ml Description of delivery: The patient progressed to complete with epidural anesthesia. She then began to push. She spontaneously vaginally delivered a viable from the cephalic presentation. The head delivered in ANNETTE position. The anterior shoulder delivered, followed by the posterior shoulder, followed by the body. No nuchal cord. The baby was placed on mother's abdomen and a spontaneous cry was heard. Delayed cord clamping was employed, and the cord was doubly clamped and cut. Cord blood was obtained. The placenta was delivered spontaneously intact with a 3-vessel cord. Uterine sweep revealed no remaining placental tissue. The uterus and vagina were swept of clots and debris. IV pitocin was given. The uterus became firm. The cervix, vagina, and perineum were inspected. No evidence of vaginal cyst previously seen in office. 2nd degree perineal laceration reapproximated with 3-0 vicryl. Excellent hemostasis was observed. The mother and baby are recovering in stable and good condition in the room. Sponge, needle and instrument counts were correct x 2. Taty Ugarte DO [facility] Vaginal Delivery Charge Vaginal Delivery Codes: 24715 global code for the antepartum, delivery, and post- Delivery Type Details: and 2nd Degree LAC
[2022-01-03] MEDS ORDERED: BENZOCAINE 20% AER SPR 82.5 GM CAN EXT PRN (13:10)
[2022-01-03] MEDS ORDERED: DIPHTHERIA/TETANUS/PERTUSSIS 0.5 ML SYR/VIAL IM ONE (13:10)
[2022-01-03] MEDS ORDERED: oxyCODONE/ACETAMINOPHEN 5mg/325mg TAB PO PRN (13:10)
[2022-01-03] MEDS ORDERED: bisacodyL 10 MG SUPP PR PRN (13:10)
[2022-01-03] MEDS ORDERED: ACETAMINOPHEN 325 MG TAB PO PRN (13:10)
[2022-01-03] MEDS ORDERED: HYDROCORTISONE ACETATE 25 MG SUPP PR PRN (13:10)
--- NOTE | 2022-01-03 13:47 | Anesthesiology Progress Note ---
Date of Service January 03, 2022 Anesthesia Post Procedure Vital Signs Vital Signs: Temp Pulse Resp BP Pulse Ox 01/03/22 13:40 77 20 102/60 01/03/22 13:25 67 18 101/60 01/03/22 13:11 20 01/03/22 13:10 67 105/58 L 01/03/22 12:55 36.9 C 79 20 111/64 01/03/22 12:40 99 H 121/68 01/03/22 12:32 118 H 100 01/03/22 12:30 142 H 93 01/03/22 12:27 115 H 100 01/03/22 12:22 116 H 100 01/03/22 12:17 100 H 100 01/03/22 12:12 88 100 01/03/22 12:11 68 114/75 01/03/22 12:07 73 100 01/03/22 12:02 70 98 01/03/22 11:57 67 100 01/03/22 11:56 68 16 104/62 01/03/22 11:52 65 99 01/03/22 11:51 72 91 01/03/22 11:47 89 100 01/03/22 11:44 74 110/70 01/03/22 11:42 71 100 01/03/22 11:37 80 98 01/03/22 11:32 69 100 01/03/22 11:29 76 109/65 01/03/22 11:27 72 100 01/03/22 11:22 36.7 C 76 20 100 01/03/22 11:17 86 100 01/03/22 11:12 89 99 01/03/22 11:11 63 106/64 01/03/22 11:07 60 98 01/03/22 11:02 60 98 01/03/22 10:57 222 H 63 L 01/03/22 10:55 66 104/67 01/03/22 10:48 78 98 01/03/22 10:43 65 96 01/03/22 10:40 75 102/60 01/03/22 10:38 75 100 01/03/22 10:33 74 100 01/03/22 10:28 74 99 01/03/22 10:25 77 96/57 L 01/03/22 10:23 81 98 01/03/22 10:18 76 100 01/03/22 10:13 70 98 01/03/22 10:10 75 96/54 L 01/03/22 10:08 75 99/54 L 100 01/03/22 10:06 94 H 111/66 01/03/22 10:04 75 108/61 01/03/22 10:03 78 100 01/03/22 10:02 86 116/67 01/03/22 10:00 72 16 91/50 L 01/03/22 09:58 76 95/61 L 100 01/03/22 09:56 103 H 105/67 01/03/22 09:54 90 114/66 01/03/22 09:53 90 100 01/03/22 09:52 96 H 118/68 01/03/22 09:50 99 H 20 113/65 01/03/22 09:48 97 H 113/65 100 01/03/22 09:46 106 H 113/68 01/03/22 09:44 103 H 108/66 01/03/22 09:43 102 H 100 01/03/22 09:42 106 H 112/66 01/03/22 09:40 82 20 105/57 L 01/03/22 09:38 96 H 18 114/76 100 01/03/22 09:36 78 113/71 01/03/22 09:33 103 H 99 01/03/22 09:28 87 100 01/03/22 09:24 90 20 135/75 01/03/22 09:23 97 H 100 01/03/22 07:43 36.7 C 86 20 127/77 Pain Intensity Abdomen: Pain Intensity: 0 Transfer of Care Handoff Completed per policy Notes Mental Status: alert / awake / arousable and participated in evaluation Patient Amnestic to Procedure: Yes Nausea / Vomiting: adequately controlled Pain: adequately controlled Airway Patency, RR, SpO2: stable & adequate BP & HR: stable & adequate Hydration State: stable & adequate Anesthetic Complications: no major complications apparent and Pt Satisfied with anesthetic care
[2022-01-03] MEDS: IBUPROFEN 600 MG TAB PO PRN ×2 (17:02→22:17)
[2022-01-03] MEDS: DOCUSATE SODIUM 100 MG CAP PO SCH (21:52)
--- NOTE | 2022-01-04 06:05 | Obstetrical Progress Note ---
Date of Service <Spenser Mckeon - Last Filed: 01/04/22 06:30> January 04, 2022 Assessment & Plan <Spenser Mckeon - Last Filed: 01/04/22 06:30> (1) Encounter for care and examination after delivery: 31 yo post day 1 from vaginal delivery, doing well. -Continue routine post care. -vital signs reviewed and WNL. (Tmax 36.9) -Blood type A-, GBS negative, Rubella Immune -Encourage ambulation, monitor and control pain with Motrin, tylenol PRN, resume regular diet, monitor lochia. -encourage breast feeding. -hemoglobin 11.5 -Discussed discharge with patient, d/c later today if cleared by peds. Follow up w/ Dr. Ugarte in 6 weeks for post check. <Taty Ugarte, - Last Filed: 01/04/22 07:38> (1) Encounter for care and examination after delivery: 31 yo post day 1 from vaginal delivery, doing well. -Continue routine post care. -vital signs reviewed and WNL. (Tmax 36.9) -Blood type A-, GBS negative, Rubella Immune -Encourage ambulation, monitor and control pain with Motrin, tylenol PRN, resume regular diet, monitor lochia. -encourage breast feeding. -Discussed discharge with patient, d/c later today if cleared by peds. Follow up w/ Dr. Ugarte in 6 weeks for post check. Subjective <Spenser MckeonDO - Last Filed: 01/04/22 06:30> Ambulation: ambulating normally Voiding: no voiding problems Passing Gas:: Yes Diet Tolerance:: regular diet Lochia:: Small Feeding Type:: breast feeding Current Pain Level(1-10): 0 Review of Systems Denies fever, chills, sweats Denies shortness of breath, difficulty breathing, chest pain, palpitations, chest pressure. Denies breast pain. Denies dysuria. Denies headache or changes in vision Physical Exam <Spenser GuerrerocesarshanitaDO - Last Filed: 01/04/22 06:30> General: Alert, oriented. No acute distress. Cardiac: Regular rate and rhythm, no murmurs/rubs/gallops. Respiratory: Clear to auscultation bilaterally a/p, no wheezes/rales/rhonchi. No increased work of breathing. Symmetrical chest rise. No respiratory distress. Abdomen: Soft, nontender, nondistended. Bowel sounds present. Uterus: Uterine fundus firm, palpable 3 cm below umbilicus. Lower Extremities: No lower extremity edema or swelling. No deep calf pain. Mary's negative bilaterally Results & Data ([facility]) <Spenser Mckeon DO - Last Filed: 01/04/22 06:30> Vital Signs (Past 12 Hours) Vital Signs Temp Pulse Resp BP Pulse Ox 01/04/22 04:00 36.6 C 62 18 116/70 98 01/04/22 00:37 36.6 C 61 20 119/73 98 01/03/22 19:00 36.6 C 65 18 105/73 98 <Taty Ugarte DO - Last Filed: 01/04/22 07:38> Co-Signing Physician Notes Resident Physician Supervision Note: I was present with Dr. Mckeon during the history and exam. I discussed the case with the resident and agree with the findings and plan as documented in the note. Any exceptions or clarifications are listed here: PPD#1 doing well, would like to go home today. Reviewed DC instructions, followup in office in 6w. Documented By: Taty Ugarte DO Resident Activity Tracking <Spenser Mckeon DO - Last Filed: 01/04/22 06:30> Resident Involvement: Resident Care Provided Care Provided: OB Delivery
[2022-01-04 06:17] LABS: Hemoglobin 10.7 g/dL (12.0-16.0); Mean Corpuscular Hemoglobin 30.1 pg (25-34); Mean Corpuscular Hgb Conc 33.4 g/dL (32-36); Mean Corpuscular Volume 90.1 fL (80-100); Mean Platelet Volume 8.5 fL (7.4-10.4); Platelet Count 304 K/uL (130-400); RDW Coefficient of Variation 13.7 % (11.5-14.5); RDW Standard Deviation 45.5 fL (36.4-46.3); Red Blood Count 3.55 M/uL (4.2-5.4); White Blood Count 9.23 K/uL (4.8-10.8)
[2022-01-04] MEDS: DOCUSATE SODIUM 100 MG CAP PO SCH (07:51)
[2022-01-04] MEDS: IBUPROFEN 600 MG TAB PO PRN (07:51)
[2022-01-04] MEDS ORDERED: PRENATAL VITAMIN 1 TAB PO SCH (08:00)
[2022-01-04] MEDS ORDERED: bisacodyL 5 MG TABEC PO SCH (20:00)
== END 2022-01-04 14:45 | disposition home or self-care (01) | DRG 807 ==
LOC: 4S1 07:35 → 4E2 15:38